=== PATIENT | female | born 1935 | race Caucasian/White ===

== ENCOUNTER 2018-10-03 08:13 | Day surgery (SDC) | payer MEDICARE, OTHER | END 2018-10-03 13:33 | disposition home or self-care (01) | LOC: GIL 08:13 | DX: K92.1 Melena (principal); D12.5 Benign neoplasm of sigmoid colon; K51.90 Ulcerative colitis, unspecified, without complications; E11.9 Type 2 diabetes mellitus without complications; I10 Essential (primary) hypertension; E78.5 Hyperlipidemia, unspecified; Z79.84 Long term (current) use of oral hypoglycemic drugs | CPT/HCPCS: 45380; 82962; 88305 ==